=== PATIENT | male | born 1965 | race Caucasian/White ===

== ENCOUNTER 2016-05-15 22:47 | Emergency (ER) | payer BC ==
[2016-05-15] MEDS ORDERED: GOOD NEIGHBOR P20 M1 PO (22:59)
[2016-05-15] MEDS ORDERED: IBUPROFEN800 MG PO (22:59)
[2016-05-16 01:52] VITALS: BP 144/97
== END 2016-05-16 01:52 | disposition home or self-care (01) ==
LOC: ED 22:47
DX: R53.81 Other malaise (principal); Z82.49 Family history of ischemic heart disease and other diseases of the circulatory system; F41.9 Anxiety disorder, unspecified

== ENCOUNTER → 2016-05-21 | Outpatient (CLI) | payer BC ==
[~2016-05-21] MED LIST: GOOD NEIGHBOR P20 M1 PO; IBUPROFEN800 MG PO
== END ==
LOC: CARDREHAB 15:52
DX: R07.9 Chest pain, unspecified (principal); Z82.49 Family history of ischemic heart disease and other diseases of the circulatory system

== ENCOUNTER → 2018-08-15 | Outpatient (CLI) | payer OTHER | LOC: LAB 07:25 | DX: Z01.818 Encounter for other preprocedural examination (principal) ==

== ENCOUNTER → 2019-04-05 | Outpatient (CLI) | payer OTHER | LOC: RAD 08:30 | DX: M89.312 Hypertrophy of bone, left shoulder (principal) ==

== ENCOUNTER → 2019-04-19 | Outpatient (CLI) | payer OTHER | LOC: RAD 08:53 | DX: M19.011 Primary osteoarthritis, right shoulder (principal) ==